=== PATIENT | female | born 1980 | race Caucasian/White ===

== ENCOUNTER 2018-09-11 07:47 | Emergency (ER) | payer MEDICAID ==
[~2018-09-11] VITALS: Ht 162.6 cm; Wt 82.8 kg
[2018-09-11 07:51] VITALS: BP 110/65
--- NOTE | 2018-09-11 07:55 | NUR ---
PT AMB TO BED 4.
--- NOTE | 2018-09-11 07:56 | NUR ---
38/F BIB SELF C/O RT FOOT SWOLLEN X 1 WEEK. PT STATES SHE TWISTED IT. PATIENT STATES PAIN OF 10/10 AT THIS TIME; VSS; PATIENT POSITIONED FOR COMFORT; HOB ELEVATED; BEDRAILS UP X2; BED DOWN. ER MD MADE AWARE OF PT STATUS.
--- NOTE | 2018-09-11 08:00 | NUR ---
Patient being evaluated by DR LLAMAS at bedside.
--- NOTE | 2018-09-11 08:07 | NUR ---
X RAY AT BEDSIDE
--- NOTE | 2018-09-11 08:15 | NUR ---
Patient being reevaluated by DR LLAMAS at bedside.
[2018-09-11 08:27] VITALS: BP 117/71
== END 2018-09-11 08:27 | disposition home or self-care (01) ==
LOC: MED 07:47
DX: S93.601A Unspecified sprain of right foot, initial encounter (principal); X50.1XXA Overexertion from prolonged static or awkward postures, initial encounter; Y93.01 Activity, walking, marching and hiking; Y92.89 Other specified places as the place of occurrence of the external cause; Y99.8 Other external cause status
CPT/HCPCS: 73630; 81025; 99283; Q0092; 81002

== ENCOUNTER 2021-12-26 20:09 | Emergency (ER) | payer MEDICAID ==
[~2021-12-26] VITALS: Ht 157.5 cm; Wt 86.2 kg
[2021-12-26 20:17] VITALS: BP 117/71
--- NOTE | 2021-12-26 20:20 | NUR ---
Patient watied in Lobby.
--- NOTE | 2021-12-26 20:45 | NUR ---
Blood for labwork drawn from left arm per [employer]. Patient tolerated well.
[2021-12-26 20:58] LABS: BASOPHILS % (AUTO) 0.5 % (0.0-2.0); EOSINOPHILS # (AUTO) 0.1 K/uL (0-0.4); EOSINOPHILS % (AUTO) 1.8 % (0.0-4.0); HEMOGLOBIN 13.2 g/dL (12.0-16.0); LYMPHOCYTES % (AUTO) 40.6 % (20.5-51.1); MEAN CORPUSCULAR HEMOGLOBIN 29 pg (27-31); MEAN CORPUSCULAR HGB CONC 33 g/dL (33-37); MEAN CORPUSCULAR VOLUME 88.2 fL (80-94); MONOCYTES # (AUTO) 0.7 K/uL (0.8-1.0); NEUTROPHILS # (AUTO) 3.5 K/uL (1.8-7.7); NEUTROPHILS % (AUTO) 48.1 % (42.2-75.2); PLATELET COUNT (AUTO) 202 K/uL (140-450); RED BLOOD CELL COUNT(AUTO) 4.54 MIL/uL (4.20-5.40); RED CELL DISTRIBUTION WIDTH 14.7 % (11.6-13.7); WHITE BLOOD COUNT (AUTO) 7.3 K/uL (4.8-10.8)
[2021-12-26 20:59] LABS: APPEARANCE,URINE CLEAR (CLEAR); BILIRUBIN,URINE 1+ (NEGATIVE); BLOOD, URINE NEGATIVE (NEGATIVE); LEUKOCYTE ESTERASE ,URINE NEGATIVE (NEGATIVE); NITRITE, URINE NEGATIVE (NEGATIVE); PH,URINE 5.5 (5.0-9.0); UGLUCOSE NEGATIVE (NEGATIVE)
[2021-12-26 21:09] LABS: COLOR,URINE YELLOW (YELLOW)
[2021-12-26 21:13] LABS: ALBUMIN 3.8 g/dL (3.4-5.0); ANION GAP 12.2 (8-16); CARBON DIOXIDE 27.2 mmol/L (21-32); CREATININE 0.7 mg/dL (0.6-1.3); POTASSIUM 3.4 mmol/L (3.5-5.1); TOTAL BILIRUBIN 0.2 mg/dL (0.0-1.0)
--- NOTE | 2021-12-26 21:46 | NUR ---
Patient returned back from Ultrasound room.
--- NOTE | 2021-12-26 22:59 | NUR ---
Patient ambulated to bed 2.
--- NOTE | 2021-12-26 23:17 | NUR ---
Dr. Palacios examining patient.
--- NOTE | 2021-12-26 23:17 | NUR ---
Patient in bed, on monitor. Patient stated "the bump on my right abdomen has been there for the past few weeks and in the past few days it's been getting worse." Dr. Palacios assessing patient now. Patient does not display s/s of distress.
[2021-12-26] MEDS ORDERED: KETOROLAC 30 MG/ML VIAL IM ONE (23:25)
[2021-12-26] MEDS ORDERED: DICYCLOMINE HCL LIQUID 20 MG, ALUMINUM HYD/MAG/SIMETHICONE 30 ML, LIDOCAINE VISCOUS 2% ... PO ONE ×3 (23:25)
[2021-12-26] MEDS ORDERED: FAMOTIDINE 20 MG TAB PO ONE (23:25)
[2021-12-27] MEDS ORDERED: ALUMINUM HYD/MAG/SIMETHICONE 30 ML UDC ONE (00:03)
[2021-12-27] MEDS ORDERED: DICYCLOMINE HCL LIQUID 10 MG/5 ML UDC ONE (00:03)
[2021-12-27] MEDS ORDERED: IBUP-2213 PO (01:23)
[2021-12-27] MEDS ORDERED: HYDR-5080 PO (01:23)
[2021-12-27 01:40] VITALS: BP 118/79
== END 2021-12-27 01:40 | disposition home or self-care (01) ==
LOC: MED 20:09
DX: K80.50 Calculus of bile duct without cholangitis or cholecystitis without obstruction (principal); K76.0 Fatty (change of) liver, not elsewhere classified; R74.01 Elevation of levels of liver transaminase levels; Z79.899 Other long term (current) drug therapy
CPT/HCPCS: 36415; 76705; 80053; 81003; 82150; 83690; 84702; 85025; 96372; 99284; J1885; Q0092

== ENCOUNTER 2022-10-30 11:46 | Emergency (ER) | payer MEDICAID ==
[~2022-10-30] VITALS: Ht 162.6 cm; Wt 83.5 kg
[~2022-10-30 11:46] MED LIST: HYDR-5080 PO; IBUP-2213 PO
[2022-10-30 11:52] VITALS: BP 124/77
[2022-10-30] MEDS ORDERED: methocarbamoL 500 MG TAB PO STA (12:17)
[2022-10-30] MEDS ORDERED: KETOROLAC 30 MG/ML VIAL IM ONE (12:20)
--- NOTE | 2022-10-30 13:00 | NUR ---
C/O MID BACK PAIN , MEDS GIVEN ORDERED
[2022-10-30 14:19] LABS: APPEARANCE,URINE CLEAR (CLEAR); BILIRUBIN,URINE NEGATIVE (NEGATIVE); BLOOD, URINE NEGATIVE (NEGATIVE); COLOR,URINE YELLOW (YELLOW); LEUKOCYTE ESTERASE ,URINE NEGATIVE (NEGATIVE); NITRITE, URINE NEGATIVE (NEGATIVE); UGLUCOSE NEGATIVE (NEGATIVE)
[2022-10-30] MEDS ORDERED: CYCL-711 PO (14:29)
[2022-10-30] MEDS ORDERED: NAPR-1704 PO (14:29)
[2022-10-30] MEDS ORDERED: LID5T TP (14:29)
--- NOTE | 2022-10-30 14:40 | NUR ---
Patient discharged with v/s stable. Written and verbal after care instructions given and explained. Patient alert, oriented and verbalized understanding of instructions. Ambulatory with steady gait. All questions addressed prior to discharge. ID band removed. Patient advised to follow up with PMD. Rx of FLEXERIL,LIDODERM,NAPROSYN given. Patient educated on indication of medication including possible reaction and side effects. Opportunity to ask questions provided and answered.
--- NOTE | 2022-10-30 14:41 | NUR ---
Patient discharged with v/s stable. Written and verbal after care instructions given and explained. Patient verbalized understanding. Ambulatory with steady gait. All questions addressed prior to discharge. Advised to follow up with PMD.
== END 2022-10-30 14:40 | disposition home or self-care (01) ==
LOC: MED 11:46
DX: M62.830 Muscle spasm of back (principal); Z79.899 Other long term (current) drug therapy
CPT/HCPCS: 72080; 81003; 96372; 99284; J1885